=== PATIENT | female | born 2000 | race Caucasian/White ===

== ENCOUNTER 2022-03-23 20:35 | Inpatient (IN) ==
[2022-03-23 23:53] LABS: Influenza A PCR Negative (Negative); Influenza B PCR Negative (Negative); Resp. Syncytial Virus PCR Negative (Negative); SARS-CoV-2 by PCR (In House) Negative (Negative)
[2022-03-24] MEDS ORDERED: *HR* LORazepam 2 MG/ML VIAL IM PRN (00:03)
[2022-03-24] MEDS ORDERED: *HR* LORazepam 1 MG TABLET PO PRN (00:03)
[2022-03-24] MEDS ORDERED: haloperidoL 5 MG TABLET PO PRN (00:03)
[2022-03-24] MEDS ORDERED: Acetaminophen 325 MG TABLET PO PRN (00:03)
[2022-03-24] MEDS ORDERED: Haloperidol Lactate 5 MG/ML VIAL IM PRN (00:03)
[2022-03-24] MEDS: traZODone 50 MG TABLET PO PRN ×2 (01:21→20:36)
[2022-03-24] MEDS: hydrOXYzine pamoate 25 MG CAPSULE PO PRN ×2 (01:22→20:36)
[2022-03-24] MEDS ORDERED: MOM Conc 10 ML UD.LIQ PO PRN (11:19)
[2022-03-24] MEDS ORDERED: Mag Hydrox/Al Hydrox/Simeth 30 ML UDC PO PRN (11:19)
[2022-03-24] MEDS ORDERED: Venlafaxine XR (24 HR) 75 MG CAP.ER.24H PO SCH (11:45)
[2022-03-24] MEDS: ARIPiprazole 10 MG TABLET PO SCH (20:36)
[2022-03-25] MEDS: Venlafaxine XR (24 HR) 150 MG CAP.ER.24H PO SCH (10:05)
[2022-03-25] MEDS: hydrOXYzine pamoate 25 MG CAPSULE PO PRN (20:34)
[2022-03-25] MEDS: ARIPiprazole 10 MG TABLET PO SCH (20:34)
[2022-03-26] MEDS: Venlafaxine XR (24 HR) 150 MG CAP.ER.24H PO SCH (09:21)
[2022-03-26 21:21] VITALS: O2SAT 98
[2022-03-26] MEDS: ARIPiprazole 10 MG TABLET PO SCH (21:36)
[2022-03-27] MEDS: Venlafaxine XR (24 HR) 150 MG CAP.ER.24H PO SCH (09:04)
[2022-03-27 10:19] VITALS: BP 118/90; PULSE 97; TEMP 96.9
== END 2022-03-27 16:00 | disposition home or self-care (01) | DRG 751 ==
LOC: EMEROOARM 20:35 → 1ANU 03-24 00:14
PROVIDERS: ADMIT Psychiatry & Neurology Psychiatry; ATTEND Psychiatry & Neurology Psychiatry